=== PATIENT | female | born 1955 | race Caucasian/White ===

== ENCOUNTER 2024-04-26 10:25 | Outpatient (RCR) | payer MEDICARE, MEDICAID, SELFPAY ==
--- NOTE | 2024-04-26 12:37 | CTCCONSULT_ITS ---
[facility] [address] [place], [place] [address] Consultation Note Date: 04/26/2024 MR#: [id number] Name: FREDRICK LIRA : 1955 Dx: C02.2 Attending Physician Kelli Montiel [facility] Referring physician: chip Reid MD Reason for consultation. Patient with stage LUZ [id number] left tongue CA with neck mets referred for postop adjuvant treatment at the cancer treatment center. History of Present Illness: Patient is a pleasant 68-year-old lady with a growth noted in left latera l portion tongue with biopsy revealing squamous cell CA. Saw Dr. Jose Antonio Reid head and neck surgeon barrington Irizarry who ordered a PET scan 03/14/2024 which revealed FDG avid lesion in the left lateral mid to anterior tongue showing elevated uptake consistent with CA. Several nodes in the left neck at level of 2 3 and 4 suggesting possible lymph node mets. Patient on 03/30/2024 underwent left hemiglossectom y and left neck dissection performed by Dr. Reid at . Final path revealed squamous SCCA well-differentiated with keratinization 1.8 cm with depth of invasion 8 mm there was n o lymphovascular invasion there was no perineural invasion and resection margins were uninvolved by t umor. Level 2-5 dissection revealed 3 nodes positive for met CA 3 of 32 largest was 6 mm with 2 mm e xtranodal invasion present. Patient now referred for adjuvant therapy. Past Medical History: History of bronchitis ear infections high blood pressure influenza Meds. Losartan triamterene amlodipine Budeprion Megace 40 mg estradiol omeprazole Zepbound once a we ek Allergies none to meds Family history. No family history of cancer Social History: Patient has never been lives with mother in [place]. Has used illegal s ubstance in high school denies smoking drinking Review of Systems: Has had anxiety cold heat intolerance memory loss nausea diarrhea shortness of suzanne ath exertion unexplained fatigue. Physical Exam: General: Well-appearing lady no acute distress HEENT: Easily visible surgical changes in the left lateral tongue well-healed no gross tumor seen in the oral cavity; left neck dissection appears to be healing well CV: Chest clear to station heart regular rate and rhythm ABD: Soft no organomegaly tenderness EXT: No signs of clubbing or edema Assessment:1. Patient with stage LUZ SCCA left anterior tongue T2 (depth of invasion 8 N2b < 6 mm nodes ipsilateral positive; resection margins negative; extranodal extension 2 mm. #2. Status post left hemiglossectomy and left neck dissection. Dr.Allen Reid 03/30/2024. #3. Due to multiple lymph nodes involved and with extranodal extension recommend chemoradiation #4. Radiation will involve 5500 -6000cGy to the areas at risk in oral cavity and neck VMAT for advanced treatment planning. Side effects explained. Patient has already seen dentist for preradiation dental eval #5. Refer patient to Dr. Chavez medical oncology. Patient would like to speak to medical oncologist before finally deciding on chemo. #6. G-tube placement. #7. Thank you very much for allowing me to evaluate this patient. Cc: Jose Antonio Reid MD [facility] Kelli Montiel [facility] Electronically signed by: Oscar Castellano MD, BARI 04/26/2024 12:35 PM
--- NOTE | 2024-04-26 12:43 | CTCTXPLN_ITS ---
[facility] [place] [address] [place], [place] [address] Physician Clinical Treatment Planning Note Date of Service: 04/26/2024 Name: FREDRICK LIRA : 1955 The patient has agreed to proceed with Radiation therapy. Tests and supporting medical records were interpreted to assist in defining the tumor location and extent of disease. Further imaging will be necessary to contour and delineate the volume to which the XRT will be provided. A. Treatment Intent: Curative B. Modality: 6 MV C. Requested Technique:VMAT D. Treatment Site: Head and neck E. Critical structures to be contoured on plan: Head and neck F. In order to accomplish this plan, I am ordering/Prescribing the followin. Simulations (s) will be performed to accomplish a reproducible treatment position, to determine op timal treatment portals/beam arrangements, to design beam modifying devices and verify treatment port als on patient prior to the commencement of Radiation Therapy. Head and neck 2. Devices; for immobilization and beam shaping: Aqua Plast 3. CT Guidance for placement of XRT almaguer Scan area: 4. Portal images Frequency: 5. Invivo transit dose measurement once per week on all VMAT patients. 6. Special Physics Consult Requested for: 7. Other requests: Special procedure for someone getting chemo and radiation G. Dose Objectives: Curative Electronically signed by: Oscar Castellano M.D. 04/26/2024 12:41 PM
--- NOTE | 2024-04-26 12:45 | CTCTXPLNST_ITS ---
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 Pt Treatment Intent: curative palliative other: Stage: Procedure CPT # Ordered Spec. Procedure 19772 1 Seth Complex (set-up) 15612 Head and neck 1 Seth Simple 53031 IMRT Plan 40129 1 MLC Devices VMAT 67800 3 Seth 3 D 79685 TRTMT dev Complex 40827 Aqua Plast 1 TRTMT dev simple 35461 Basic [place]don 91172 9 Special Dosimetry 75819 Spec Physics 05457 Port Films 75287 SRS Cranial/1FX 72857 SBR 5 FX or Less /ex: 5 = 5 fx 06287 IMRT Simple 99369 6000 30 IMRT Complex 05596 IGRT 17992 28 Rad del com 6-10 88114 Rad del com 11- 78290 Cont Med Physics 91424 6 Treatment Planning 21431 1 Rad del com 20 mev 84549 Rad del inter 6 84400 Rad del inter 03-15 22544 Rad del simple 6-10 65427 Rad del simple 11 13048 Special Port Plan 07302 TRTMT dev inter 43203 Isodose Complex 22492 Isodose simple 44405 Resp Motion Mgmt Simulation 70009 Placement of Fiducial Markers 19081 Electronically Signed By: Oscar Castellano MD, DABR 04/26/2024 12:43 PM
== END 2024-04-26 23:59 | disposition home or self-care (01) ==
LOC: SCTC 10:25
PROVIDERS: PCP Nurse Practitioner Family; Referring Provider Otolaryngology; Visit Provider Radiology Therapeutic Radiology
DX: C02.9 Malignant neoplasm of tongue, unspecified (principal); C77.0 Secondary and unspecified malignant neoplasm of lymph nodes of head, face and neck; Z90.49 Acquired absence of other specified parts of digestive tract
CPT/HCPCS: 99213; G0463

== ENCOUNTER → 2024-05-11 | Outpatient (CLI) | payer MEDICARE, MEDICAID, SELFPAY ==
[2024-05-11 12:13] LABS: Basophils % (Auto) 1 % (0-2.5); Eosinophils # (Auto) 0.1 Thou/mm3 (0.0-0.5); Eosinophils % (Auto) 2 % (0-10); Hematocrit 27.8 % (36.0-46.0); Hemoglobin 9.9 g/dL (12.0-16.0); Immature Granulocytes % (Auto) 0 % (0-0); Immature Granulocytes Auto 0.01 Thou/mm3 (0.00-0.00); Lymphocytes # (Auto) 1.2 Thou/mm3 (1.0-4.8); Lymphocytes % (Auto) 18 % (10-50); Mean Corpuscular HGB Conc 35.6 g/dl (31.0-37.0); Mean Corpuscular Hemoglobin 31.3 pg (25.0-35.0); Mean Corpuscular Volume 88 fL (80-100); Monocytes # (Auto) 0.4 Thou/mm3 (0.0-0.8); Monocytes % (Auto) 6 % (0-12); Neutrophils # (Auto) 4.8 Thou/mm3 (1.8-7.7); Neutrophils % (Auto) 73 % (37-80); Nucleated Red Blood Cell % 0 /100 WBC (0); Platelet Count 347 Thou/mm3 (140-440); RDW Standard Deviation 40.2 fL (36.4-46.3); Red Blood Count 3.16 Miln/mm3 (4.00-5.20); White Blood Count 6.5 Thou/mm3 (3.6-11.0)
[2024-05-11 12:31] LABS: Alanine Aminotransferase 50 U/L (10-49); Albumin, Serum 4.8 gm/dL (3.4-4.8); Albumin/Globulin Ratio 2.5 (1.2-2.2); Alkaline Phosphatase 68 U/L (46-116); Anion Gap 13 (7-16); Aspartate Amino Transferase 17 U/L (0-34); BUN/Creatinine Ratio 15 Ratio (12-20); Bilirubin,Total 0.6 mg/dL (0.3-1.2); Blood Urea Nitrogen 27 mg/dL (9-23); Calcium 9.9 mg/dL (8.3-10.6); Calcium (Corrected) 9.9 mg/dL (8.5-10.1); Carbon Dioxide 22.3 mMol/L (20.0-31.0); Chloride 104 mMol/L (98-107); Creatinine (Component) 1.8 mg/dL (0.6-1.3); Globulin 1.9 gm/dL (2.3-3.5); Glucose 78 mg/dL (74-106); Osmolality,Calculated 281 (275-295); Potassium 3.6 mMol/L (3.4-5.1); Sodium 139 mMol/L (136-145); Total Protein 6.7 gm/dL (5.7-8.2); eGFR 30 See Note
== END | disposition home or self-care (01) ==
PROVIDERS: PCP Family Medicine; Referring Provider Internal Medicine Hematology & Oncology; Visit Provider Internal Medicine Hematology & Oncology
DX: C02.2 Malignant neoplasm of ventral surface of tongue (principal)
CPT/HCPCS: 36415; 80053; 85025

== ENCOUNTER 2024-05-27 10:00 | Outpatient (RCR) | payer MEDICARE, MEDICAID, SELFPAY ==
--- NOTE | 2024-05-03 14:10 | CTCFLWUP_ITS ---
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 Reid postop who recommended chemo with radiation so the patient agrees to have chemo therapy. Shall arrange to have port placed. Has consultation with Dr. Chavez in 2 weeks.. G-tube placement request and preradiation dental eval has been done. Electronically signed by: Oscar Castellano M.D. 05/03/2024 2:07 PM
--- NOTE | 2024-05-03 14:12 | CTCSNOTE_ITS ---
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 (C) CT slices included Head and Neck (D) VMAT Will be needed for maximum sparing of adjacent normal critical structures. (E) Patient tolerated the simulation well and left the room in good condition. Electronically signed by: Oscar Castellano MD, BOBOR 05/03/2024 2:09 PM
--- NOTE | 2024-05-11 12:45 | CTCCONSULT_ITS ---
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 followed by left hemiglossectomy performed on 024 3 out of 32 lymph nodes positive DATE OF DIAGNOSIS: 03/15/2024 STAGE/TNM: Stage IV aT2 pN2b left tongue squamous cell cancer status post hemiglossectomy pathology showed squam ous cell cancer well-differentiated well current radiation 1.8 cm depth of invasion 8 mm lymphovascul ar invasion not identified perineural invasion not identified resection margins uninvolved by tumor 3 lymph nodes positive for metastatic squamous cell cancer largest size 6 mm extranodal invasion 2 mm TREATMENT HISTORY: Care?Plan Start?Date Cycle Day Intent CISplatin?100mg/m*2?with?XRT 05/11/2024 1 21 Curative?(adjuvant) HISTORY OF PRESENT ILLNESS: 68-year-old female was seen by oral surgeon with a complaint of tongue pain in February 2024. Patien tina underwent PET CT scan after his biopsy was found to be positive for squamous cell cancer. On Decem 2023 patient had hemiglossectomy which revealed locally advanced cancer with the 3 out of 32 l ymph nodes positive in the neck. Today patient is complaining of a new lesion in her mouth at at the place of recent surgery. . Patient is already scheduled to see oral surgeon. OTHER MEDICAL HISTORY/CONDITIONS: HYPERTENSION BRONCHITIS FIBROMYALGIA URETER?TRANSPLANT?AT?7?YEARS?OLD FAMILY HISTORY: Father:?DENIES Mother:?DENIES Sibling:?DENIES Children:?DENIES Cancer?History:?TONGUE?CANCER Patient?denies?family?cancer?history. SOCIAL HISTORY: Occupational?History:?[employer] Education?Level:?Attended College, did not graduate Marital?Status:?Single Tobacco?Pack?per?Day:?0 Tobacco Use:?STOPPED SMOKING IN 2010, SMOKE 1/2 PACK CIGS PER DAY ETOH?Use:?DENIES Drug?Note:?EXPERIMENTED TEENAGER COCAINE,MARIJUANA Social History Note:?LIVES WITH STEP MOM VENDETTE HISTORY: Menarche?-?Age:?13 Menopause:?49 Hormone?Use:?ADMITS?BC?PILLS?IN?PAST :?0 Live?Births:?0 Age?1st?:?0 Gynecological?Note:?LAST PAP SMEAR A YEAR AGO Gynecological?Note?2:?MAMMOGRAM HAS NOT BEEN DONE MEDICATIONS: 1. BuSpar - 300 mg Daily 2. Compazine - 5 mg 1 - 2 tab three times a day 3. ESTRADIOL - 1 mg As directed 4. lorazepam - 0.5 mg 1 tab three times a day 5. omeprazole - 40 mg Daily Medications Last Reconciled by Alfreda Miranda MD on 05/11/2024 ALLERGIES: No Known Allergies REVIEW OF SYSTEMS: A complete 14-point review of systems was performed and is negative except as noted in interval histo ry. PHYSICAL EXAMINATION: VITAL SIGNS: Temperature?97.8, B/P?155/81, Height?60?inches, Oxygen?Saturation?98% Weight?127?lbs ([place]?since?04/26/24:?-3?lbs) PAIN: 5 - Between moderate and severe pain ECOG Performance Status: 1 - Symptomatic; ambulatory; restricted in strenuous activity GENERAL APPEARANCE: Appears well, in no apparent distress, appropriately interactive. HEENT: Normocephalic, no temporal wasting, normal conjunctiva, no scleral icterus, normal hearing, li ps without lesions, neck normal range of motion. CARDIOVASCULAR: Not assessed. PULMONARY: Normal respiratory effort, no respiratory distress or use of accessory muscles, speaking i n full sentences, no tachypnea. EXTREMITIES: No pedal edema or cyanosis. SKIN: Normal skin appearance. NEUROLOGIC: Alert and oriented x4. PSHYCHIATRIC: Appropriate affect, mood normal, behavior normal, intact thought and speech. LABORATORY DATA: I have personally reviewed and interpreted each of the patient?s relevant lab tests, abnormal finding s are below: Date 05/11/24 ??GLUCOSE,RANDOM?(mg/dL) 78 ??BLOOD?UREA?NITROGEN?(mg/dL) 27?H ??CREATININE?(mg/dL) 1.80?H ??SODIUM?(mmol/L) 139 ??POTASSIUM?(mmol/L) 3.6 ??CHLORIDE?(mmol/L) 104 ??CrCl?(CandG)?(ml/min) 27.58 ??AST/SGOT?(Unit/L) 17 ??ALT/SGPT?(Unit/L) 50?H ??ALKALINE?PHOSPHATASE?(Unit/L) 68 ??BILIRUBIN,?TOTAL?(mg/dL) 0.6 ??PROTEIN?TOTAL?(gm/dl) 6.7 ??ALBUMIN,?SERUM?(gm/dl) 4.8 ??GLOBULIN?(gm/dl) 1.9?L ??ALBUMIN/GLOBULIN?RATIO 2.5?H ??CALCIUM,?SERUM?(mg/dL) 9.9 ??CALCIUM?SERUM?(CORRECTED)?(mg/dL) 9.9 ASSESSMENT/PLAN: Squamous cell cancer of the tongue Patient have locally advanced stage Earle tumor Status post hemiglossectomy Will offer concurrent chemoradiation with high-dose cisplatin Port catheter PEG tube placement ordered Patient likely have a small ulcer or recurrence but is very tender so unlikely to be a cancer Already scheduled to see the surgeon Will start chemoradiation as soon as we have PEG tube and port catheter done Will do nutrition consult as patient have inability to take oral food as have been CBC CMP nutrition consult port catheter PEG tube placement ordered hearing test RETURN TO CLINIC: 2 weeks before first cycle of chemo chemo BILLING AND COMPLIANCE: I reviewed external records from providers outside my specialty as summarized above. I spent a total of 50 minutes on this patient?s care on the day of their visit excluding time spent related to any bi lled procedures. This time includes time spent with the patient as well as time spent documenting in the medical record, reviewing patients records and tests, obtaining history, placing orders, communi cating with other healthcare professionals, counseling the patient, family or caregiver, and/or care coordination for the diagnoses above. Electronically Signed by: Braden Chavez MD T: 12:42 PM CC: PCP: Referring: Kelli Montiel This document was completed utilizing speech recognition software. Grammatical errors, random word in sertions, pronoun errors, and incomplete sentences are an occasional consequence of this system due t o software limitations, ambient noise, and hardware issues. Any formal questions or concerns about th e content, text or information contained within the body of this dictation should be directly address ed to the provider for clarification.
== END 2024-05-27 23:59 | disposition home or self-care (01) ==
LOC: SCTC 10:00
PROVIDERS: PCP Nurse Practitioner Family; Referring Provider Nurse Practitioner Family; Visit Provider Radiology Therapeutic Radiology
DX: C02.9 Malignant neoplasm of tongue, unspecified (principal); Z90.09 Acquired absence of other part of head and neck
CPT/HCPCS: 77014; 77290; 77300; 77301; 77334; 77338; 99212; 99213; G0463

== ENCOUNTER 2024-06-06 07:12 | Outpatient (CLI) | payer MEDICARE, MEDICAID, SELFPAY ==
[2024-06-06] VITALS (12 sets, daily range): BP systolic 129–192; BP diastolic 75–100; PULSE 70–94; RESP 12–20; TEMP 36.8–37.2; O2SAT 94–99; BMI 25.4
[2024-06-06 08:00] LABS: Basophils % (Auto) 1 % (0-2.5); Eosinophils # (Auto) 0.2 Thou/mm3 (0.0-0.5); Eosinophils % (Auto) 3 % (0-10); Hematocrit 28.7 % (36.0-46.0); Hemoglobin 9.5 g/dL (12.0-16.0); Immature Granulocytes % (Auto) 0 % (0-0); Immature Granulocytes Auto 0.01 Thou/mm3 (0.00-0.00); Lymphocytes # (Auto) 1.6 Thou/mm3 (1.0-4.8); Lymphocytes % (Auto) 24 % (10-50); Mean Corpuscular HGB Conc 33.1 g/dl (31.0-37.0); Mean Corpuscular Hemoglobin 31.6 pg (25.0-35.0); Mean Corpuscular Volume 95 fL (80-100); Monocytes # (Auto) 0.6 Thou/mm3 (0.0-0.8); Monocytes % (Auto) 9 % (0-12); Neutrophils # (Auto) 4.2 Thou/mm3 (1.8-7.7); Neutrophils % (Auto) 63 % (37-80); Nucleated Red Blood Cell % 0 /100 WBC (0); Platelet Count 306 Thou/mm3 (140-440); RDW Standard Deviation 49.5 fL (36.4-46.3); Red Blood Count 3.01 Miln/mm3 (4.00-5.20); White Blood Count 6.7 Thou/mm3 (3.6-11.0)
--- NOTE | 2024-06-06 08:30 | XR_ITS ---
Examination: IR venous implantation Port-A-Cath Ultrasound-guided needle placement right internal jugular vein. Fluoroscopy AP Chest, portable single view Exam date and time: June 06, 2024 0902 hours INDICATIONS: Diagnosis malignant neoplasm face neck, need for long-term intravenous chemotherapy. Informed consent provided Technique: A timeout was completed, verifying correct patient, procedure, site, positioning, and special equipment if applicable The patient was placed in a dependent position appropriate for central line placement based on the vein to be cannulated. The patient's right neck was prepped and draped in sterile fashion. Maximum Sterile Barrier Technique used including cap, mask, sterile gown, sterile gloves, and sterile full body drape. If ultrasound technique used: sterile gel and sterile probe covers. Hand Hygiene performed using proper scrub, soap and water, or alcohol-based hand rub. Site right portable apparatus utilized to confirm patency of the right internal jugular vein Utilizing ultrasonographic guidance successful 21-gauge needle puncture into the right internal jugular vein Ultrasound images were recorded and stored. Successful micropuncture with a 21-gauge needle was performed. 0.18 wire guide was introduced into the IVC under fluoroscopic guidance. The wires is then exchanged for a 0.25 J-wire guide placed in the vena cava. Subcutaneous pocket formed with blunt dissection in the upper chest with placement of the Port-A-Cath reservoir in the pocket connected to a 8 Spanish 21 cm Port-A-Cath placed through a venous sheath into the superior vena cava in satisfactory position The attending radiologist was present for the entire procedure Estimated blood loss2 cc. Findings: Under fluoroscopy, the tip of the catheter is in good position in the vena cava. Portable chest x-ray, post line placement, as ordered. Impression: Successful ultrasound-guided needle placement right internal jugular vein. Successful IR venous implantation Port-A-Cath Fluoroscopy 0.2 minute radiation dose 1.50 milligray 1 spot fluoroscopic chest film. AP portable chest completion procedure demonstrates satisfactory position Port-A-Cath tip SVC. May use Port-A-Cath
[2024-06-06 08:37] LABS: Partial Thromboplastin Time 26.5 Seconds (22.0-36.0); Prothrombin Time 10.8 Seconds (9.0-12.2)
[2024-06-06] MEDS: SODIUM CHLORIDE 0.9% 250 ML 250 ML 50 ML IV (09:30)
[2024-06-06] MEDS: ceFAZolin 1 GM in SODIUM CHLORIDE 0.9% 100 ML IV (09:31)
[2024-06-06] MEDS: fentaNYL CIT INJ 50 mCg/ML AMP 2ML 100 MCG IVP (09:59)
[2024-06-06] MEDS: HEPARIN SOD LOCK SYR 100 UNIT/ML 500 UNIT STFIELD (10:02)
[2024-06-06] MEDS: ceFAZolin INJ 1 GM VIAL TOPICAL (10:02)
[2024-06-06] MEDS: LIDOCAINE INJ PF 1% 30 ML VIAL 7 ML INFL (10:02)
[2024-06-06] MEDS: LIDOCAINE 1% W/EPI 1:100K 20 ML VIAL INFL (10:02)
--- NOTE | 2024-06-06 12:08 | PC.NURSE ---
1032 patient is awake, alert, breathing unlabored, s/p tunneled hemodialysis catheteter insertion to right IJ, dressing dry with no bleeding, patient in laborer brooder [place] 4 for 1hr recovery. 1125 patient stable, meets discharge criteria, waiting for ride to get here 1150 vital signs stable, patient disconnected from vital signs monitoring and sit up to get dressed, patient stating dressing to neck is too tight and wants to remove. dressing changed, patient states feels better 1200 patient is awake, alert, breathing unlabored discharge instructions given to patiet and mother, patient discharged home in wheelchair with all belongings.
== END 2024-06-06 12:00 | disposition home or self-care (01) ==
PROVIDERS: Radiology Diagnostic Radiology; Referring Provider Radiology Therapeutic Radiology; Visit Provider Radiology Therapeutic Radiology
DX: C02.2 Malignant neoplasm of ventral surface of tongue (principal)
CPT/HCPCS: 36558; 36415; 76937; 77001; 82565; 84520; 85025; 85610; 85730; C1769; C1788; C1894; J0690; J1642; J3010; J3490; J7050

== ENCOUNTER → 2024-06-17 | Outpatient (CLI) | payer MEDICARE, MEDICAID, SELFPAY ==
--- NOTE | 2024-06-17 12:40 | XR_ITS ---
Examination: IR staple removal Port-A-Cath insertion site Exam date and time: June 17, 2024 1240 hours INDICATIONS: IR venous implantation Port-A-Cath June 06, 2024, patient returns for removal sonal closure device FINDINGS: Informed consent bladder. Timeout performed. Skin prepped over the Port-A-Cath incision site and sterile drape applied hand hygiene Careful removal of the Port-A-Cath incision site sonal Estimated blood 0 cc IMPRESSION: Successful IR staple removal at Port-A-Cath insertion site
== END | disposition home or self-care (01) ==
PROVIDERS: PCP Nurse Practitioner Family; Referring Provider Radiology Therapeutic Radiology; Visit Provider Radiology Therapeutic Radiology
DX: Z48.02 Encounter for removal of sutures (principal)

== ENCOUNTER 2024-06-24 11:19 | Outpatient (RCR) | payer MEDICARE, MEDICAID, SELFPAY ==
[2024-06-14 08:08] LABS: Magnesium 1.8 mg/dL (1.6-2.6)
[2024-06-14 08:09] LABS: Alanine Aminotransferase 47 U/L (10-49); Albumin, Serum 4.3 gm/dL (3.4-4.8); Albumin/Globulin Ratio 1.9 (1.2-2.2); Alkaline Phosphatase 161 U/L (46-116); Anion Gap 9 (7-16); Aspartate Amino Transferase 34 U/L (0-34); BUN/Creatinine Ratio 25 Ratio (12-20); Bilirubin,Total 0.3 mg/dL (0.3-1.2); Blood Urea Nitrogen 25 mg/dL (9-23); Carbon Dioxide 26.2 mMol/L (20.0-31.0); Chloride 104 mMol/L (98-107); Globulin 2.3 gm/dL (2.3-3.5); Glucose 103 mg/dL (74-106); Osmolality,Calculated 281 (275-295); Potassium 3.6 mMol/L (3.4-5.1); Sodium 139 mMol/L (136-145); Total Protein 6.6 gm/dL (5.7-8.2); eGFR > 60 See Note
[2024-06-14 08:19] LABS: Basophils # (Auto) 0.1 Thou/mm3 (0.0-0.2); Basophils % (Auto) 1 % (0-2.5); Eosinophils # (Auto) 0.4 Thou/mm3 (0.0-0.5); Eosinophils % (Auto) 5 % (0-10); Hematocrit 32.4 % (36.0-46.0); Immature Granulocytes % (Auto) 0 % (0-0); Immature Granulocytes Auto 0.03 Thou/mm3 (0.00-0.00); Lymphocytes # (Auto) 2.1 Thou/mm3 (1.0-4.8); Lymphocytes % (Auto) 31 % (10-50); Mean Corpuscular Hemoglobin 31.4 pg (25.0-35.0); Mean Corpuscular Volume 93 fL (80-100); Monocytes # (Auto) 0.7 Thou/mm3 (0.0-0.8); Monocytes % (Auto) 9 % (0-12); Neutrophils # (Auto) 3.8 Thou/mm3 (1.8-7.7); Neutrophils % (Auto) 54 % (37-80); Nucleated Red Blood Cell % 0 /100 WBC (0); Platelet Count 429 Thou/mm3 (140-440); RDW Standard Deviation 44.1 fL (36.4-46.3)
== END 2024-06-24 23:59 | disposition home or self-care (01) ==
LOC: SCTC 11:19
PROVIDERS: PCP Family Medicine; Referring Provider Family Medicine; Visit Provider Internal Medicine Hematology & Oncology
DX: Z51.11 Encounter for antineoplastic chemotherapy (principal); Z51.0 Encounter for antineoplastic radiation therapy; C02.9 Malignant neoplasm of tongue, unspecified
CPT/HCPCS: 77300; 77301; 77336; 77338; 77385; 80053; 83735; 85025; 96367; 96368; 96375; 96413; 96415; A4216; J1100; J1200; J1453; J1642; J1940; J2405; J3475; J3480; J3490; J7030; J7040; J7050; J9060

== ENCOUNTER 2024-07-25 13:55 | Outpatient (RCR) | payer MEDICARE, MEDICAID, SELFPAY ==
--- NOTE | 2024-06-27 14:34 | CTCTRTNOTE_ITS ---
[facility] [address], [place] [address] Weekly Management Date: 06/27/2024 ?? Name: FREDRICK BISHOPABE Ohara.: 1955 A. Patient is currently at 1660 cGy. B. Patient is tolerating treatment well. C. Resume radiation therapy. Electronically signed by: Oscar Castellano M.D. 06/27/2024 2:32 PM
[2024-07-04 15:16] LABS: Basophils % (Auto) 1 % (0-2.5); Eosinophils # (Auto) 0.1 Thou/mm3 (0.0-0.5); Eosinophils % (Auto) 6 % (0-10); Hemoglobin 9.6 g/dL (12.0-16.0); Immature Granulocytes % (Auto) 0 % (0-0); Immature Granulocytes Auto 0.01 Thou/mm3 (0.00-0.00); Lymphocytes # (Auto) 0.7 Thou/mm3 (1.0-4.8); Lymphocytes % (Auto) 32 % (10-50); Mean Corpuscular HGB Conc 34.3 g/dl (31.0-37.0); Mean Corpuscular Hemoglobin 31.1 pg (25.0-35.0); Mean Corpuscular Volume 91 fL (80-100); Monocytes # (Auto) 0.5 Thou/mm3 (0.0-0.8); Monocytes % (Auto) 20 % (0-12); Neutrophils # (Auto) 0.9 Thou/mm3 (1.8-7.7); Neutrophils % (Auto) 41 % (37-80); Nucleated Red Blood Cell % 0 /100 WBC (0); Platelet Count 429 Thou/mm3 (140-440); RDW Standard Deviation 42.7 fL (36.4-46.3); Red Blood Count 3.09 Miln/mm3 (4.00-5.20)
[2024-07-04 15:56] LABS: Alanine Aminotransferase 9 U/L (10-49); Albumin, Serum 3.9 gm/dL (3.4-4.8); Albumin/Globulin Ratio 1.7 (1.2-2.2); Alkaline Phosphatase 78 U/L (46-116); Anion Gap 7 (7-16); Aspartate Amino Transferase 12 U/L (0-34); BUN/Creatinine Ratio 17 Ratio (12-20); Bilirubin,Total 0.3 mg/dL (0.3-1.2); Blood Urea Nitrogen 17 mg/dL (9-23); Calcium 9.4 mg/dL (8.3-10.6); Calcium (Corrected) 9.5 mg/dL (8.5-10.1); Carbon Dioxide 26.7 mMol/L (20.0-31.0); Chloride 102 mMol/L (98-107); Globulin 2.3 gm/dL (2.3-3.5); Glucose 82 mg/dL (74-106); Magnesium 1.7 mg/dL (1.6-2.6); Osmolality,Calculated 272 (275-295); Sodium 136 mMol/L (136-145); Total Protein 6.2 gm/dL (5.7-8.2); eGFR > 60 See Note
[2024-07-04 16:19] LABS: White Blood Count 2.3 Thou/mm3 (3.6-11.0)
[2024-07-08 11:51] LABS: Basophils # (Auto) 0.1 Thou/mm3 (0.0-0.2); Basophils % (Auto) 0 % (0-2.5); Eosinophils # (Auto) 0.2 Thou/mm3 (0.0-0.5); Eosinophils % (Auto) 1 % (0-10); Hematocrit 31.9 % (36.0-46.0); Hemoglobin 10.8 g/dL (12.0-16.0); Immature Granulocytes % (Auto) 5 % (0-0); Lymphocytes # (Auto) 1.5 Thou/mm3 (1.0-4.8); Lymphocytes % (Auto) 4 % (10-50); Mean Corpuscular HGB Conc 33.9 g/dl (31.0-37.0); Mean Corpuscular Hemoglobin 31.4 pg (25.0-35.0); Mean Corpuscular Volume 93 fL (80-100); Monocytes # (Auto) 3.4 Thou/mm3 (0.0-0.8); Monocytes % (Auto) 8 % (0-12); Neutrophils # (Auto) 33.7 Thou/mm3 (1.8-7.7); Neutrophils % (Auto) 83 % (37-80); Nucleated Red Blood Cell % 0 /100 WBC (0); Platelet Count 348 Thou/mm3 (140-440); RDW Standard Deviation 46.6 fL (36.4-46.3); Red Blood Count 3.44 Miln/mm3 (4.00-5.20)
[2024-07-08 12:14] LABS: Magnesium 1.8 mg/dL (1.6-2.6)
[2024-07-08 12:18] LABS: White Blood Count 40.9 Thou/mm3 (3.6-11.0)
[2024-07-08 12:23] LABS: Alanine Aminotransferase 8 U/L (10-49); Albumin, Serum 4.1 gm/dL (3.4-4.8); Albumin/Globulin Ratio 1.8 (1.2-2.2); Alkaline Phosphatase 166 U/L (46-116); Anion Gap 12 (7-16); Aspartate Amino Transferase 22 U/L (0-34); BUN/Creatinine Ratio 15 Ratio (12-20); Bilirubin,Total 0.3 mg/dL (0.3-1.2); Blood Urea Nitrogen 16 mg/dL (9-23); Calcium 9.7 mg/dL (8.3-10.6); Calcium (Corrected) 9.7 mg/dL (8.5-10.1); Carbon Dioxide 26.3 mMol/L (20.0-31.0); Chloride 99 mMol/L (98-107); Creatinine (Component) 1.1 mg/dL (0.6-1.3); Globulin 2.3 gm/dL (2.3-3.5); Glucose 72 mg/dL (74-106); Osmolality,Calculated 274 (275-295); Potassium 3.7 mMol/L (3.4-5.1); Sodium 137 mMol/L (136-145); Total Protein 6.4 gm/dL (5.7-8.2); eGFR 55 See Note
[2024-07-08 12:33] LABS: Path Review Blood Smear Sent to Pathologist
== END 2024-07-25 23:59 | disposition home or self-care (01) ==
LOC: SCTC 13:55
PROVIDERS: PCP Nurse Practitioner Family; Referring Provider Nurse Practitioner Family; Visit Provider Internal Medicine Hematology & Oncology
DX: Z51.0 Encounter for antineoplastic radiation therapy (principal); Z51.11 Encounter for antineoplastic chemotherapy; C02.2 Malignant neoplasm of ventral surface of tongue; K12.33 Oral mucositis (ulcerative) due to radiation; L59.8 Other specified disorders of the skin and subcutaneous tissue related to radiation; Y84.2 Radiological procedure and radiotherapy as the cause of abnormal reaction of the patient, or of later complication, without mention of misadventure at the time of the procedure
CPT/HCPCS: 36591; 77336; 77385; 80053; 83735; 85025; 96360; 96367; 96368; 96372; 96375; 96413; 96415; 99424; 99425; A4216; J1100; J1453; J1642; J2405; J2506; J3475; J3480; J3490; J7030; J7050; J9060

== ENCOUNTER 2024-08-16 14:23 | Outpatient (RCR) | payer MEDICARE, MEDICAID, SELFPAY ==
[2024-08-01 15:37] LABS: Basophils % (Auto) 1 % (0-2.5); Eosinophils # (Auto) 0.1 Thou/mm3 (0.0-0.5); Eosinophils % (Auto) 3 % (0-10); Hemoglobin 10.3 g/dL (12.0-16.0); Immature Granulocytes % (Auto) 1 % (0-0); Immature Granulocytes Auto 0.02 Thou/mm3 (0.00-0.00); Lymphocytes # (Auto) 0.8 Thou/mm3 (1.0-4.8); Lymphocytes % (Auto) 24 % (10-50); Mean Corpuscular HGB Conc 35.5 g/dl (31.0-37.0); Mean Corpuscular Hemoglobin 31.8 pg (25.0-35.0); Mean Corpuscular Volume 90 fL (80-100); Monocytes # (Auto) 0.5 Thou/mm3 (0.0-0.8); Monocytes % (Auto) 17 % (0-12); Neutrophils # (Auto) 1.8 Thou/mm3 (1.8-7.7); Neutrophils % (Auto) 56 % (37-80); Nucleated Red Blood Cell % 0 /100 WBC (0); Platelet Count 499 Thou/mm3 (140-440); RDW Standard Deviation 43.8 fL (36.4-46.3); Red Blood Count 3.24 Miln/mm3 (4.00-5.20); White Blood Count 3.2 Thou/mm3 (3.6-11.0)
[2024-08-01 16:10] LABS: Alanine Aminotransferase 9 U/L (10-49); Albumin, Serum 3.9 gm/dL (3.4-4.8); Albumin/Globulin Ratio 1.7 (1.2-2.2); Alkaline Phosphatase 66 U/L (46-116); Anion Gap 13 (7-16); Aspartate Amino Transferase 20 U/L (0-34); BUN/Creatinine Ratio 14 Ratio (12-20); Bilirubin,Total 0.3 mg/dL (0.3-1.2); Blood Urea Nitrogen 15 mg/dL (9-23); Calcium 9.3 mg/dL (8.3-10.6); Calcium (Corrected) 9.4 mg/dL (8.5-10.1); Carbon Dioxide 25.4 mMol/L (20.0-31.0); Chloride 95 mMol/L (98-107); Creatinine (Component) 1.1 mg/dL (0.6-1.3); Globulin 2.3 gm/dL (2.3-3.5); Glucose 70 mg/dL (74-106); Magnesium 1.3 mg/dL (1.6-2.6); Osmolality,Calculated 265 (275-295); Potassium 3.6 mMol/L (3.4-5.1); Sodium 133 mMol/L (136-145); Total Protein 6.2 gm/dL (5.7-8.2); eGFR 55 See Note
[2024-08-02 16:38] LABS: Magnesium 2.8 mg/dL (1.6-2.6)
--- NOTE | 2024-08-16 22:22 | CTCFLWUP_ITS ---
Patient: LINDA LIRA : 1955 Page 3 of 5 FOLLOW UP NOTE DATE OF SERVICE: 08/16/2024 NAME: LINDA LIRA ACCOUNT: [id number] : 1955 AGE: 69 INTERVAL HISTORY: Patient presents for follow-up after completing 3 cycles of chemotherapy and radiation, with concerns about supplement intake and side effects from recent treatments. Patient had resection of her tongue and EGD resection done by her Reid at [place] with the reoccurrence. Patient has now completed chemoradiation and suffering from side effects of radiation. Patient was also having more nausea but is now better after started taking her nausea medicines as prescribed. The patient reports difficulty taking supplements due to sickness from her last radiation treatment. She acknowledges not taking her nausea medication regularly, which contributed to her symptoms. However, she states that she is now feeling better and focusing on proper medication adherence. Linda has been experiencing dry mouth, a common side effect of radiation therapy, which has led to difficulties with eating and swallowing. She mentions struggling with food intake, particularly with harder textures, and has been relying on softer foods and liquids. The patient also reports issues with mouth pain and discomfort, affecting her ability to eat and maintain proper nutrition. Linda notes that her mouth appears clean, but she has been having trouble with tongue movement and overall oral function. She expresses concern about potential weight loss due to these eating difficulties. The patient mentions receiving a creamy yellow liquid from one of the chemotherapy nurses to help with her oral symptoms, though she clarifies it was not lidocaine. Regarding recent healthcare interactions, Linda states that she saw her surgeon in [place], which prevented her from getting her labs done as scheduled. The surgeon suggested scheduling a PET scan in September to differentiate between cancer and non-cancer tissue. ONCOLOGY HISTORY:?[facility] Hx? 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 Patient underwent PET CT scan after his biopsy was found to be positive for squamous cell cancer. On March 30, 2024 patient had hemiglossectomy which revealed locally advanced cancer with the 3 out of 32 l ymph nodes positive in the neck. Today patient is complaining of a new lesion in her mouth at at the place of recent surgery. . Patient is already scheduled to see oral surgeon. OTHER MEDICAL HISTORY/CONDITIONS: HYPERTENSION BRONCHITIS FIBROMYALGIA URETER?TRANSPLANT?AT?8?YEARS?OLD FAMILY HISTORY: Father:?DENIES Mother:?DENIES Sibling:?DENIES Children:?DENIES Cancer?History:?TONGUE?CANCER Patient?denies?family?cancer?history. 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 BuSpar - 300 mg Daily 2. Compazine - 5 mg 1 - 2 tab three times a day 3. ESTRADIOL - 1 mg As directed 4. hydrocodone-acetaminophen - 5-325 mg 1 tab q6 5. Lidocaine Viscous - 2 % 2 Teaspoon Swish, gargle, and spit every 6 hrs as needed 6. lorazepam - 0.5 mg 1 tab three times a day 7. nystatin - 100,000 unit/mL 5 mL Daily 8. omeprazole - 40 mg Daily 9. ondansetron - 4 mg 1 tab q8 10. Silvadene - 1 % 1 Application three times a day 11. traMADol - 50 mg 1 tab q6?[place] Meds? Medications Last Reconciled by Ruth Borrego MA on 08/16/2024 ALLERGIES: No Known Allergies REVIEW OF SYSTEMS: A complete 14-point review of systems was performed and is negative except as noted in interval history. PHYSICAL EXAMINATION:?[facility] PE? VITAL SIGNS: Temperature?98.7, B/P?120/79, Oxygen?Saturation?98% Weight?104.8?lbs (Change?since?08/09/24:?-2.2?lbs) PAIN: 4 - Moderate pain ECOG Performance Status: 0 - Asymptomatic and fully active GENERAL APPEARANCE: Appears well, in no apparent distress, appropriately interactive. HEENT: Normocephalic, no temporal wasting, normal conjunctiva, no scleral icterus, normal hearing, lips without lesions, neck normal range of motion. CARDIOVASCULAR: Not assessed. PULMONARY: Normal respiratory effort, no respiratory distress or use of accessory muscles, speaking in full sentences, no tachypnea. EXTREMITIES: No pedal edema or cyanosis. SKIN: Normal skin appearance. NEUROLOGIC: Alert and oriented x4. PSHYCHIATRIC: Appropriate affect, mood normal, behavior normal, intact thought and speech. LABORATORY DATA: I have personally reviewed and interpreted each of the patient?s relevant lab tests, abnormal findings are below: Date 08/01/24 08/02/24 ??WHITE?BLOOD?COUNT?(Thou/mm3) 3.2?L ?RED?BLOOD?COUNT?(Miln/mm3) 3.24?L ?HEMOGLOBIN?(gm/dl) 10.3?L ?HEMATOCRIT?(%) 29.0?L ?PLATELET?COUNT?(Thou/mm3) 499?H ?NEUTROPHILS?%,?AUTO?(%) 56 ?LYMPH?%,?AUTO?(%) 24 ?NEUTROPHILS,?AUTO?(Thou/mm3) 1.8 ?GLUCOSE,RANDOM?(mg/dL) 70?L 80 ? ??BLOOD?UREA?NITROGEN?(mg/dL) 15 ?CREATININE?(mg/dL) 1.10 ?SODIUM?(mmol/L) 133?L ?POTASSIUM?(mmol/L) 3.6 ?CHLORIDE?(mmol/L) 95?L ?CrCl?(CandG)?(ml/min) 39.47 ?AST/SGOT?(Unit/L) 20 ?ALT/SGPT?(Unit/L) 9?L ?ALKALINE?PHOSPHATASE?(Unit/L) 66 ?BILIRUBIN,?TOTAL?(mg/dL) 0.3 ?PROTEIN?TOTAL?(gm/dl) 6.2 ?ALBUMIN,?SERUM?(gm/dl) 3.9 ?GLOBULIN?(gm/dl) 2.3 ?ALBUMIN/GLOBULIN?RATIO 1.7 ?CALCIUM,?SERUM?(mg/dL) 9.3 ?CALCIUM?SERUM?(CORRECTED)?(mg/dL) 9.4 ?MAGNESIUM?(mg/dL) ? ? 2.8?H ASSESSMENT/PLAN:?Melody Chavez Assessment/Plan? Squamous cell cancer of the tongue Patient have locally advanced stage Earle tumor Status post hemiglossectomy followed by reresection of the margins as a had recurrence Completed concurrent chemoradiation with high-dose cisplatin Port catheter PEG tube placement ordered PEG tube feeding Patient completed chemoradiation Will do PET CT scan to see recurrence in a month Extensively counseled regarding oral hygiene and exercises to regain some oral function Advised oral swallowing exercises Soft foods Oral hydration to keep mouth clean ORDERS: Order # Description [id number] Comprehensive Metabolic Panel - 12 + CBC with Auto Diff [id number] Follow Up 2 Months [id number] CBC + Comprehensive Metabolic Panel + Magnesium [id number] Lab Appointment [id number] Follow Up Appointment [id number] PET/CT of Skull to mid-thigh for Restaging RETURN TO CLINIC: BILLING AND COMPLIANCE: I reviewed external records from providers outside my specialty as summarized above. I spent a total of 50 minutes on this patient?s care on the day of their visit excluding time spent related to any billed procedures. This time includes time spent with the patient as well as time spent documenting in the medical record, reviewing patients records and tests, obtaining history, placing orders, communicating with other healthcare professionals, counseling the patient, family or caregiver, and/or care coordination for the diagnoses above. Electronically Signed by: Braden Chavez MD T: 10:20 PM CC: PCP: Referring: Kelli Montiel This document was completed utilizing speech recognition software. Grammatical errors, random word insertions, pronoun errors, and incomplete sentences are an occasional consequence of this system due to software limitations, ambient noise, and hardware issues. Any formal questions or concerns about the content, text or information contained within the body of this dictation should be directly addressed to the provider for clarification.
== END 2024-08-24 23:59 | disposition home or self-care (01) ==
LOC: SCTC 14:23
PROVIDERS: PCP Nurse Practitioner Family; Referring Provider Nurse Practitioner Family; Visit Provider Internal Medicine Hematology & Oncology
DX: Z51.0 Encounter for antineoplastic radiation therapy (principal); Z51.11 Encounter for antineoplastic chemotherapy; C02.9 Malignant neoplasm of tongue, unspecified; C77.0 Secondary and unspecified malignant neoplasm of lymph nodes of head, face and neck; Z90.89 Acquired absence of other organs
CPT/HCPCS: 36591; 77336; 77385; 80053; 83735; 85025; 96367; 96368; 96375; 96413; 96415; 99212; A4216; J1100; J1200; J1453; J1642; J1940; J2405; J3475; J3480; J3490; J7030; J7040; J7050; J9060; G0463

== ENCOUNTER 2024-08-25 13:31 | Outpatient (RCR) | payer MEDICARE, MEDICAID, SELFPAY ==
--- NOTE | 2024-08-25 14:49 | CTCTSUMM_ITS ---
[facility] 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 Patient was recovering from mucositis symptoms but had some residual pain and needed to take [place] 5 every 6 as needed. PET scan will not be ordered for restaging purposes. (G) Discharge Instructions and F/U Appt was given: The patient was also advised to continue follow-up with Dr. Reid and primary care physician: cc: Jose Antonio Reid MD Electronically signed by: Oscar Castellano MD, DABR 08/25/2024 2:47 PM
== END 2024-09-24 23:59 | disposition home or self-care (01) ==
LOC: SCTC 13:31
PROVIDERS: PCP Nurse Practitioner Family; Referring Provider Nurse Practitioner Family; Visit Provider Radiology Therapeutic Radiology
DX: C02.2 Malignant neoplasm of ventral surface of tongue (principal); Z92.3 Personal history of irradiation
CPT/HCPCS: 99212; G0463

== ENCOUNTER → 2024-10-04 | Outpatient (CLI) | payer MEDICARE, MEDICAID, SELFPAY ==
--- NOTE | 2024-10-04 09:30 | XR_ITS ---
EXAMINATION: PET/CT FUSION SKULL TO THIGH EXAM DATE AND TIME: October 04, 2024 1026 hours Comparison PET/CT scan March 14, 2024 INDICATIONS: Diagnosis malignant neoplasm tongue, restaging post treatment CTDI:vol (mGy) 3.08 DLP: (mGycm) 281.42 PROCEDURE: 14.2 mCi FDG was administered intravenously To allow for distribution and uptake of radiotracer, the patient was allowed to rest quietly in a shielded room. Imaging was performed on an integrated 16-slice PET/CT scanner, with scanning from the skull base to the mid thigh. Serum blood glucose at the time of the injection was measured 86 mg/dL. CT scanning was performed without oral or intravenous contrast material. FINDINGS: Head and Neck: Images are degraded by filling artifacts Hypermetabolic area anterior tongue at least 26 x 14 mm axial image 53 Hypermetabolic cervical lymphadenopathy is not identified compared to the prior study Chest: There is no lennox hypermetabolism in the chest. There are no pulmonary nodules. Abdomen and Pelvis: There is no lennox hypermetabolism in retroperitoneal or pelvic chains. The spleen is normal in size and FDG avidity. Musculoskeletal: Marrow uptake is within normal range. IMPRESSION: Hypermetabolic activity in the anterior tongue at least 26 x 14 mm, detail is quite poor secondary to dental artifacts, recommend CT soft tissue neck post intravenous contrast follow-up No current hypermetabolic activity in the neck chest abdomen or pelvis
== END | disposition home or self-care (01) ==
PROVIDERS: Referring Provider Radiology Therapeutic Radiology; Visit Provider Radiology Therapeutic Radiology
DX: C02.2 Malignant neoplasm of ventral surface of tongue (principal)
CPT/HCPCS: 78815; A9552

== ENCOUNTER 2024-10-25 14:04 | Outpatient (RCR) | payer MEDICARE, MEDICAID, SELFPAY ==
--- NOTE | 2024-10-25 16:59 | CTCFLWUP_ITS ---
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 Initial surgery performed 03/30/2024. 1.8 cm with depth of invasion 8 mm. With 3/32 lymph nodes positive. Left hemiglossectomy and left neck dissection performed with Dr. Reid at [facility]. Additional surgery was necessary 05/18/2024 left partial glossectomy due to gross recurrence tip of left tongue. Tumor was 1.0 cm x 0.6 cm depth of invasion 4 mm lymphovascular perineural invasion not identified. Resection margin uninvolved by tumor. 5850 cGy 30 fractions with concurrent chemo. 05/31/2024 through 08/11/2024 Posttreatment PET 10/04/2024 revealed hypermetabolic activity in the anterior tongue 26 x 14 mm. No current hypermetabolic cavity neck chest abdomen Patient will be seeing Dr. Reid later this month. I gave patient follow-up in 2 months and renewed her tramadol and lorazepam. Electronically signed by: Oscar Castellano M.D. 10/25/2024 4:57 PM
== END 2024-11-24 23:59 | disposition home or self-care (01) ==
LOC: SCTC 14:04
PROVIDERS: PCP Nurse Practitioner Family; Referring Provider Internal Medicine Hematology & Oncology; Visit Provider Internal Medicine Hematology & Oncology
DX: C02.2 Malignant neoplasm of ventral surface of tongue (principal); Z90.09 Acquired absence of other part of head and neck; Z92.3 Personal history of irradiation; Z92.21 Personal history of antineoplastic chemotherapy
CPT/HCPCS: 99213; G0463

== ENCOUNTER 2025-01-02 13:57 | Outpatient (RCR) | payer MEDICARE, MEDICAID, SELFPAY ==
--- NOTE | 2024-12-28 15:40 | CTCFLWUP_ITS ---
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 Patient with stage [place] [id number] left tongue CA with neck mets. Initial surgery performed 03/30/2024 1.8 cm with depth of invasion 8 mm. 3/32 lymph nodes positive. Additional surgery was necessary 05/18/2024 left partial glossectomy due to gross recurrence tip of left tongue. Tumor was 1.0 x 0.6 cm depth of invasion 4 mm lymphovascular perineural invasion not identified. Resected margin uninvolved by tumor. 5850 cGy 30 fractions with concurrent chemo 05/31/2024 through 08/11/2024. Posttreatment PET 10/04/2024 revealed hypermetabolic cavity in the anterior tongue 26 x 14 mm. No current hypermetabolic activity neck chest or abdomen. Patient saw Dr. Reid who examined her in late October and reportedly felt that she was cancer free but could no longer follow her because of insurance. As I see her today patient appears well gained some weight although still using G-tube. I saw no gross tumor in her oral cavity or neck. A#1. Stage [place] [id number] left tongue CA with neck mets. #2. initial surgery 03/30/2024 1.8 cm with depth of invasion 8 mm 3 of 32 lymph nodes positive. #3. Had to undergo additional surgery 05/18/2024 left partial glossectomy due to gross recurrence tip of left tongue. Clear margins obtained. #4 PET scan 10/04/2024 suggested activity in anterior tongue but had poor quality secondary dental artifacts. #5. Dr. Reid october reportedly felt that she was in remission. #[address] Reid can no longer follow patient due to insurance will attempt to get another ENT for follow-up. #7. Will see her for port flushes regularly and I will see her again in 3 months. Electronically signed by: Oscar Castellano M.D. 12/28/2024 3:38 PM
--- NOTE | 2025-01-08 22:35 | CTCFLWUP_ITS ---
Patient: LINDA LIRA : 1955 Page 3 of 5 FOLLOW UP NOTE DATE OF SERVICE: 01/02/2025 NAME: LINDA LIRA ACCOUNT: [id number] : 1955 AGE: 69 INTERVAL HISTORY: Patient was seen by her ENT AND examined her mouth and was told no concerning lesion seen. 09/2024 pet was concerning for activity over her tiongue . Completed 3 cycles of chemotherapy and radiation, with concerns about supplement intake and side effects from recent treatments. Patient had resection of her tongue and EGD resection done by her Reid at [place] with the reoccurrence. Patient has now completed chemoradiation and suffering from side effects of radiation. Patient was also having more nausea but is now better after started taking her nausea medicines as prescribed. The patient reports difficulty taking supplements due to sickness from her last radiation treatment. She acknowledges not taking her nausea medication regularly, which contributed to her symptoms. However, she states that she is now feeling better and focusing on proper medication adherence. Linda has been experiencing dry mouth, a common side effect of radiation therapy, which has led to difficulties with eating and swallowing. She mentions struggling with food intake, particularly with harder textures, and has been relying on softer foods and liquids. The patient also reports issues with mouth pain and discomfort, affecting her ability to eat and maintain proper nutrition. Linda notes that her mouth appears clean, but she has been having trouble with tongue movement and overall oral function. She expresses concern about potential weight loss due to these eating difficulties. The patient mentions receiving a creamy yellow liquid from one of the chemotherapy nurses to help with her oral symptoms, though she clarifies it was not lidocaine. 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 Patient underwent PET CT scan after his biopsy was found to be positive for squamous cell cancer. On March 30, 2024 patient had hemiglossectomy which revealed locally advanced cancer with the 3 out of 32 l ymph nodes positive in the neck. Today patient is complaining of a new lesion in her mouth at at the place of recent surgery. . Patient is already scheduled to see oral surgeon. OTHER MEDICAL HISTORY/CONDITIONS: HYPERTENSION BRONCHITIS FIBROMYALGIA URETER?TRANSPLANT?AT?8?YEARS?OLD FAMILY HISTORY: Father:?DENIES Mother:?DENIES Sibling:?DENIES Children:?DENIES Cancer?History:?TONGUE?CANCER Patient?denies?family?cancer?history. 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 BuSpar - 300 mg Daily 2. cefuroxime - 250 mg 2 tab As directed 3. Compazine - 5 mg 1 - 2 tab three times a day 4. ESTRADIOL - 1 mg As directed 5. hydrocodone-acetaminophen - 5-325 mg 1 tab q6 6. Lidocaine Viscous - 2 % 2 Teaspoon Swish, gargle, and spit every 6 hrs as needed 7. lorazepam - 0.5 mg 1 tab three times a day 8. methylPREDNISolone - 4 mg 1 tab As directed 9. nystatin - 100,000 unit/mL 5 mL Daily 10. omeprazole - 40 mg Daily 11. ondansetron - 8 mg 1 tab 1 TAB EVERY 8 HRS PRN NAUSEA 12. Silvadene - 1 % 1 Application three times a day 13. traMADol - 50 mg 1 tab q6 Medications Last Reconciled by Joselyn Schulz MD on 01/02/2025 ALLERGIES: No Known Allergies REVIEW OF SYSTEMS: A complete 14-point review of systems was performed and is negative except as noted in interval history. PHYSICAL EXAMINATION: VITAL SIGNS: Temperature?99.1, B/P?166/73, Oxygen?Saturation?96% Weight?107?lbs (Change?since?12/28/24:?-2?lbs) PAIN: 0 - No pain ECOG Performance Status: 1 - Symptomatic; ambulatory; restricted in strenuous activity GENERAL APPEARANCE: Appears well, in no apparent distress, appropriately interactive. HEENT: Normocephalic, no temporal wasting, normal conjunctiva, no scleral icterus, normal hearing, lips without lesions, neck normal range of motion. CARDIOVASCULAR: Not assessed. PULMONARY: Normal respiratory effort, no respiratory distress or use of accessory muscles, speaking in full sentences, no tachypnea. EXTREMITIES: No pedal edema or cyanosis. SKIN: Normal skin appearance. NEUROLOGIC: Alert and oriented x4. PSHYCHIATRIC: Appropriate affect, mood normal, behavior normal, intact thought and speech. LABORATORY DATA: I have personally reviewed and interpreted each of the patient?s relevant lab tests, abnormal findings are below: Date 08/01/24 08/02/24 ??WHITE?BLOOD?COUNT?(Thou/mm3) 3.2?L ?RED?BLOOD?COUNT?(Miln/mm3) 3.24?L ?HEMOGLOBIN?(gm/dl) 10.3?L ?HEMATOCRIT?(%) 29.0?L ?PLATELET?COUNT?(Thou/mm3) 499?H ?NEUTROPHILS?%,?AUTO?(%) 56 ?LYMPH?%,?AUTO?(%) 24 ?NEUTROPHILS,?AUTO?(Thou/mm3) 1.8 ?GLUCOSE,RANDOM?(mg/dL) 70?L 80 ? ??BLOOD?UREA?NITROGEN?(mg/dL) 15 ?CREATININE?(mg/dL) 1.10 ?SODIUM?(mmol/L) 133?L ?POTASSIUM?(mmol/L) 3.6 ?CHLORIDE?(mmol/L) 95?L ?CrCl?(CandG)?(ml/min) 39.47 ?AST/SGOT?(Unit/L) 20 ?ALT/SGPT?(Unit/L) 9?L ?ALKALINE?PHOSPHATASE?(Unit/L) 66 ?BILIRUBIN,?TOTAL?(mg/dL) 0.3 ?PROTEIN?TOTAL?(gm/dl) 6.2 ?ALBUMIN,?SERUM?(gm/dl) 3.9 ?GLOBULIN?(gm/dl) 2.3 ?ALBUMIN/GLOBULIN?RATIO 1.7 ?CALCIUM,?SERUM?(mg/dL) 9.3 ?CALCIUM?SERUM?(CORRECTED)?(mg/dL) 9.4 ?MAGNESIUM?(mg/dL) ? ? 2.8?H ASSESSMENT/PLAN: Squamous cell cancer of the tongue Patient have locally advanced stage Earle tumor Status post hemiglossectomy followed by reresection of the margins as a had recurrence Completed concurrent chemoradiation with high-dose cisplatin Port catheter PEG tube placement ordered PEG tube feeding Patient completed chemoradiation PET scan was concerning in 06/2024 and patient was examined by ENT after that Patient says she was not found to have any leisons for biopsy I will get ct scan of neck and soft tissues to evaluate for recurrence ORDERS: Order # Description [id number] CT Scan + Neck + With W/O Contrast RETURN TO CLINIC: I reviewed the diagnosis, prognosis, and recommended treatment/procedure options with the patient (and/or their legal healthcare representative), including the potential benefits, risks, side effects and alternative therapies. We also discussed the option of no treatment and the possibility of clinical trial participation, if applicable. All questions were addressed, and they demonstrated understanding. They provided informed consent to proceed with the proposed plan of care. BILLING AND COMPLIANCE: I reviewed external records from providers outside my specialty as summarized above. I spent a total of 50 minutes on this patient?s care on the day of their visit excluding time spent related to any billed procedures. This time includes time spent with the patient as well as time spent documenting in the medical record, reviewing patients records and tests, obtaining history, placing orders, communicating with other healthcare professionals, counseling the patient, family or caregiver, and/or care coordination for the diagnoses above. Electronically Signed by: {Object.Sanct_ID*PnP.NameFL@M}, {Object.Sanct_ID*PnP.Suffix@U} D: {Object.Sanct_Date} T: {Object.Sanct_Time} CC: PCP: Kelli Montiel Referring: Kelli Montiel This document was completed utilizing speech recognition software. Grammatical errors, random word insertions, pronoun errors, and incomplete sentences are an occasional consequence of this system due to software limitations, ambient noise, and hardware issues. Any formal questions or concerns about the content, text or information contained within the body of this dictation should be directly addressed to the provider for clarification.
== END 2025-01-24 23:59 | disposition home or self-care (01) ==
LOC: SCTC 13:57
PROVIDERS: PCP Nurse Practitioner Family; Referring Provider Nurse Practitioner Family; Visit Provider Nurse Practitioner Family
DX: Z08 Encounter for follow-up examination after completed treatment for malignant neoplasm (principal); Z85.810 Personal history of malignant neoplasm of tongue; Z92.3 Personal history of irradiation; Z92.21 Personal history of antineoplastic chemotherapy; Z90.09 Acquired absence of other part of head and neck
CPT/HCPCS: 99212; G0463

== ENCOUNTER 2025-02-14 14:52 | Outpatient (RCR) | payer MEDICARE, MEDICAID, SELFPAY | END 2025-02-24 23:59 | disposition home or self-care (01) | LOC: SCTC 14:52 | PROVIDERS: PCP Nurse Practitioner Family; Referring Provider Nurse Practitioner Family; Visit Provider Nurse Practitioner Family | DX: Z45.2 Encounter for adjustment and management of vascular access device (principal); C02.9 Malignant neoplasm of tongue, unspecified | CPT/HCPCS: 96523; A4216; J1642 ==

== ENCOUNTER → 2025-03-02 | Outpatient (CLI) | payer MEDICARE, MEDICAID, SELFPAY ==
--- NOTE | 2025-03-02 15:30 | XR_ITS ---
Examination: Screening digital mammography, bilateral Computer aided detection 3-D breast Tomosynthesis, bilateral Date and time of exam: 03/02/2025, 3:41 p.m. Comparisons: 09/29/2022, Indications: Screening Technique: Nonmagnified MLO, CC views of the breasts to been obtained, reconstructed from 3-D Tomosynthesis images. R2 computer aided detection program utilized for evaluation of suspicious masses and/or abnormal calcifications. 3-D Tomosynthesis images obtained. Technologist: Findings: There are scattered areas of fibroglandular density. No evidence of abnormal masses or suspicious calcifications. Impression: BI-RADS category 1: Negative findings (within normal) Recommend 1 year follow-up mammogram
== END | disposition home or self-care (01) ==
LOC: CDIM 15:03
PROVIDERS: Referring Provider Nurse Practitioner Family; Visit Provider Nurse Practitioner Family
DX: Z12.31 Encounter for screening mammogram for malignant neoplasm of breast (principal); R92.313 Mammographic fatty tissue density, bilateral breasts
CPT/HCPCS: 77063; 77067

== ENCOUNTER 2025-03-29 14:26 | Outpatient (RCR) | payer MEDICARE, MEDICAID, SELFPAY ==
--- NOTE | 2025-03-29 15:15 | CTCFLWUP_ITS ---
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 Wily Vogt. Patient with stage LUZ [id number] left tongue CA with neck mets. Initial surgery performed 03/30/2024 1.8 cm with depth of invasion 8 mm. 3 of 32 lymph nodes positive. Additional surgery was necessary 1 20-25 left partial glossectomy due to gross recurrence tip of left tongue. Tumor was 1.0 x 0.6 cm depth of invasion 4 mm lymphovascular perineural invasion not identified. Resection margin uninvolved by tumor. 5850 cGy 30 fractions with concurrent chemo 05/31/2024 through 08/11/2024. Posttreatment PET 12/04/2024 hypermetabolic activity anterior tongue 26 x 14 mm but detail quite poor due to dental artifacts. No hypermetabolic activity in the neck chest abdomen or pelvis. Posttreatment PET 10/04/2024 revealed hypermetabolic cavity in anterior tongue 26 x 14 mm. No hypermetric activity in neck chest or abdomen. Patient was able to see Dr. Reid again recently, and he did not feel like there was any suspicious areas that need to be biopsied at this time. He will check again next month. 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 As I examine her I saw no gross tumor in her oral cavity or neck except radiation changes. Patient still using G-tube for feeding for most of her nutrition. A#!. Stage Luz left tongue CA after initial resection reresection for regrowth. A#2. Postop chemoradiation therapy completed 08/11/2024. Small hypermetric activity posttreatment PET anterior tongue. A#3. Being followed by head and neck surgeon who will see her again next month. A# 4. I will see her again in 4 months time. Electronically signed by: Oscar Castellano M.D. 03/29/2025 3:13 PM
== END 2025-04-26 23:59 | disposition home or self-care (01) ==
LOC: SCTC 14:26
PROVIDERS: PCP Nurse Practitioner Family; Referring Provider Nurse Practitioner Family; Visit Provider Radiology Therapeutic Radiology
DX: C02.9 Malignant neoplasm of tongue, unspecified (principal); C77.0 Secondary and unspecified malignant neoplasm of lymph nodes of head, face and neck; Z92.21 Personal history of antineoplastic chemotherapy; Z92.3 Personal history of irradiation
CPT/HCPCS: 99213; G0463